=== PATIENT | female | born 1960 | race Two or more races ===

== ENCOUNTER 2017-07-31 13:57 | Emergency (ER) | payer BC | END 2017-07-31 16:29 | disposition home or self-care (01) | LOC: M ED 13:57 | DX: S92.355A Nondisplaced fracture of fifth metatarsal bone, left foot, initial encounter for closed fracture (principal); X50.9XXA Other and unspecified overexertion or strenuous movements or postures, initial encounter; Y92.89 Other specified places as the place of occurrence of the external cause; Y93.89 Activity, other specified; Y99.8 Other external cause status; Z79.899 Other long term (current) drug therapy; Z88.1 Allergy status to other antibiotic agents; Z88.2 Allergy status to sulfonamides; Z98.0 Intestinal bypass and anastomosis status; Z85.038 Personal history of other malignant neoplasm of large intestine | CPT/HCPCS: 73630 ==

== ENCOUNTER → 2017-10-04 | Outpatient (CLI) | payer OTHER ==
[2017-10-04 11:57] LABS: APPEARANCE, URINE CLEAR (CLEAR); BACTERIA, URINE AUTO NEGATIVE (NEGATIVE); BILIRUBIN, URINE AUTO NEGATIVE (NEGATIVE); BLOOD, URINE BLOOD 2+ (NEGATIVE); COLOR, URINE YELLOW (YELLOW); GLUCOSE, URINE (UA) AUTO NEGATIVE (NEGATIVE); KETONE, URINE AUTO NEGATIVE (NEGATIVE); LEUKOCYTE ESTERASE, URINE AUTO NEGATIVE (NEGATIVE); MEAN CORPUSCULAR HEMOGLOBIN 29.3 pg (27.0-33.0); MEAN CORPUSCULAR HGB CONC 33.3 g/dl (32.0-36.5); MEAN CORPUSCULAR VOLUME 87.8 fl (80.0-96.0); MUCUS, URINE SMALL (NEGATIVE); NITRITE, URINE AUTO NEGATIVE (NEGATIVE); PLATELET COUNT, AUTOMATED 330 10^3/uL (150-450); PROTEIN, URINE AUTO NEGATIVE (NEGATIVE); RBC, URINE AUTO 6 /HPF (0-3); RED BLOOD COUNT 4.44 10^6/uL (4.00-5.40); RED CELL DISTRIBUTION WIDTH 13.3 % (11.5-14.5); SPECIFIC GRAVITY URINE AUTO 1.017 (1.002-1.035); SQUAMOUS EPITHELIAL CELL UR AU 2 /HPF (0-6); UROBILINOGEN, URINE AUTO 0.2 mg/dL (0.0-2.0); WBC, URINE AUTO 1 /HPF (0-3); WHITE BLOOD COUNT 8.1 10^3/uL (4.0-10.0)
[2017-10-04 12:13] LABS: ANION GAP 7 MEQ/L (8-16); BLOOD UREA NITROGEN 10 MG/DL (7-18); CARBON DIOXIDE LEVEL 29 MEQ/L (21-32); CHLORIDE LEVEL 106 MEQ/L (98-107); CHOLESTEROL LEVEL 217 MG/DL (<200); CREATININE FOR GFR 0.69 MG/DL (0.55-1.30); GLOMERULAR FILTRATION RATE > 60.0 (>51); GLUCOSE, FASTING 86 MG/DL (70-100); HDL CHOLESTEROL 64 MG/DL (>40); LDL CHOLESTEROL 127.8 MG/DL (<100); NON-HDL-C 153 MG/DL; POTASSIUM SERUM 4.3 MEQ/L (3.5-5.1); SODIUM LEVEL 142 MEQ/L (136-145); TRIGLYCERIDES LEVEL 126 MG/DL (<150)
[2017-10-04 12:36] LABS: ESTIMATED AVERAGE GLUCOSE 111 MG/DL (60-110); HEMOGLOBIN A1c 5.5 %
[2017-10-05 11:19] LABS: CARCINOEMBRYONIC ANTIGEN 76.9 NG/ML (<2.5)
== END ==
LOC: M LAB 10:44
DX: I10 Essential (primary) hypertension (principal)
CPT/HCPCS: 82378

== ENCOUNTER → 2017-10-15 | Outpatient (REF) | payer OTHER | LOC: M LAB REF 12:57 | DX: C18.9 Malignant neoplasm of colon, unspecified (principal) | CPT/HCPCS: 82378 ==

== ENCOUNTER → 2017-10-15 | Outpatient (CLI) | payer OTHER ==
[2017-10-15 09:50] LABS: ANION GAP 7 MEQ/L (8-16); BLOOD UREA NITROGEN 15 MG/DL (7-18); CARBON DIOXIDE LEVEL 27 MEQ/L (21-32); CHLORIDE LEVEL 107 MEQ/L (98-107); CREATININE FOR GFR 0.75 MG/DL (0.55-1.30); GLOMERULAR FILTRATION RATE > 60.0 (>51); GLUCOSE, FASTING 90 MG/DL (70-100); POTASSIUM SERUM 4.3 MEQ/L (3.5-5.1); SODIUM LEVEL 141 MEQ/L (136-145)
== END ==
LOC: M LAB 08:14
DX: I10 Essential (primary) hypertension (principal)
CPT/HCPCS: 80048

== ENCOUNTER → 2017-10-21 | Outpatient (CLI) | payer OTHER ==
[~2017-10-21] MED LIST: GASTROGRAFIN SOLUTION 30ML (Q9963) As Ordered; ISOVUE-370 76% 100ML VIAL (Q9967) As Ordered
== END ==
LOC: M RAD 14:32
DX: C18.9 Malignant neoplasm of colon, unspecified (principal); R10.9 Unspecified abdominal pain; R93.5 Abnormal findings on diagnostic imaging of other abdominal regions, including retroperitoneum
CPT/HCPCS: Q9963

== ENCOUNTER → 2017-10-26 | Outpatient (REF) | payer OTHER ==
[2017-10-26 18:01] LABS: INR 0.99; PROTHROMBIN TIME 13.2 SECONDS (12.4-14.5)
[2017-10-26 18:02] LABS: PARTIAL THROMBOPLASTIN TIME 31.6 SECONDS (26.8-37.9)
== END ==
LOC: M LAB REF 16:59
DX: C18.2 Malignant neoplasm of ascending colon (principal); Z01.818 Encounter for other preprocedural examination

== ENCOUNTER → 2017-11-11 | Outpatient (CLI) | payer OTHER ==
[~2017-11-11] MED LIST changes: -GASTROGRAFIN SOLUTION 30ML (Q9963) As Ordered; -ISOVUE-370 76% 100ML VIAL (Q9967) As Ordered; +LIDOCAINE 1% MDV 20ML VIAL As Ordered
== END ==
LOC: M RADPRO 10:08
DX: C78.6 Secondary malignant neoplasm of retroperitoneum and peritoneum (principal); Z79.84 Long term (current) use of oral hypoglycemic drugs; Z79.899 Other long term (current) drug therapy; Z88.8 Allergy status to other drugs, medicaments and biological substances
CPT/HCPCS: 49180

== ENCOUNTER → 2017-11-24 | Outpatient (CLI) | payer OTHER ==
[~2017-11-24] MED LIST changes: -LIDOCAINE 1% MDV 20ML VIAL As Ordered; +LIDOCAINE 2% MDV 20 ML VIAL As Ordered; +ceFAZolin 1GM INJ (J0690 PER 500MG) As Ordered
== END | disposition home or self-care (01) ==
LOC: M IRPRO 07:50
DX: C18.9 Malignant neoplasm of colon, unspecified (principal)
CPT/HCPCS: 36561

== ENCOUNTER 2017-12-10 18:42 | Emergency (ER) | payer OTHER ==
[2017-12-10 19:56] LABS: BASO % 0.1 % (0.0-1.0); HEMATOCRIT 41.4 % (36.0-47.0); HEMOGLOBIN 13.8 g/dl (12.0-15.5); IMMATURE GRANULOCYTE % 0.1 % (0-3.0); LYMPH # 1.9 10^3/uL (1.5-4.5); LYMPH % 27.4 % (24.0-44.0); MEAN CORPUSCULAR HEMOGLOBIN 29.9 pg (27.0-33.0); MEAN CORPUSCULAR HGB CONC 33.3 g/dl (32.0-36.5); MEAN CORPUSCULAR VOLUME 89.8 fl (80.0-96.0); MONO # 0.4 10^3/uL (0.0-0.8); MONO % 5.7 % (0.0-5.0); NEUTROPHILS # 4.7 10^3/uL (1.8-7.7); NEUTROPHILS % 66.7 % (36.0-66.0); PLATELET COUNT, AUTOMATED 267 10^3/uL (150-450); RED BLOOD COUNT 4.61 10^6/uL (4.00-5.40); RED CELL DISTRIBUTION WIDTH 12.5 % (11.5-14.5)
[2017-12-10 20:02] LABS: APPEARANCE, URINE HAZY (CLEAR); BACTERIA, URINE AUTO NEGATIVE (NEGATIVE); BILIRUBIN, URINE AUTO NEGATIVE (NEGATIVE); BLOOD, URINE BLOOD 2+ (NEGATIVE); COLOR, URINE YELLOW (YELLOW); GLUCOSE, URINE (UA) AUTO NEGATIVE (NEGATIVE); KETONE, URINE AUTO NEGATIVE (NEGATIVE); LEUKOCYTE ESTERASE, URINE AUTO TRACE (NEGATIVE); MUCUS, URINE SMALL (NEGATIVE); NITRITE, URINE AUTO NEGATIVE (NEGATIVE); PROTEIN, URINE AUTO NEGATIVE (NEGATIVE); RBC, URINE AUTO 11 /HPF (0-3); SQUAMOUS EPITHELIAL CELL UR AU 3 /HPF (0-6); UROBILINOGEN, URINE AUTO 0.2 mg/dL (0.0-2.0); WBC, URINE AUTO 8 /HPF (0-3)
[2017-12-10 20:20] LABS: LACTIC ACID SEPSIS PROTOCOL 1.5 MMOL/L (0.4-2.0)
[2017-12-10 20:20] LABS: ALBUMIN 3.8 GM/DL (3.2-5.2); ALKALINE PHOSPHATASE 98 U/L (45-117); ALT/SGPT 26 U/L (12-78); ANION GAP 7 MEQ/L (8-16); AST/SGOT 25 U/L (7-37); BILIRUBIN,DIRECT < 0.1 MG/DL (0.0-0.2); BILIRUBIN,TOTAL 0.2 MG/DL (0.2-1.0); BLOOD UREA NITROGEN 15 MG/DL (7-18); CALCIUM LEVEL 8.8 MG/DL (8.5-10.1); CARBON DIOXIDE LEVEL 26 MEQ/L (21-32); CHLORIDE LEVEL 105 MEQ/L (98-107); GLOMERULAR FILTRATION RATE > 60.0 (>51); GLUCOSE, FASTING 98 MG/DL (70-100); LIPASE 611 U/L (73-393); POTASSIUM SERUM 4.3 MEQ/L (3.5-5.1); SODIUM LEVEL 138 MEQ/L (136-145)
[2017-12-10] MEDS ORDERED: ISOVUE-370 76% 100ML VIAL (Q9967) As Ordered (20:26)
== END 2017-12-10 21:46 | disposition home or self-care (01) ==
LOC: M ED 18:42
DX: R50.9 Fever, unspecified (principal); I10 Essential (primary) hypertension; G43.909 Migraine, unspecified, not intractable, without status migrainosus; E78.5 Hyperlipidemia, unspecified; Z85.038 Personal history of other malignant neoplasm of large intestine; R18.8 Other ascites; Z95.828 Presence of other vascular implants and grafts; Z79.899 Other long term (current) drug therapy; Z88.2 Allergy status to sulfonamides
CPT/HCPCS: Q9967

== ENCOUNTER → 2017-12-13 | Outpatient (REF) | payer OTHER ==
[2017-12-13 19:22] LABS: LIPASE 262 U/L (73-393)
== END ==
LOC: M LAB REF 17:20
DX: C18.2 Malignant neoplasm of ascending colon (principal)
CPT/HCPCS: 83690

== ENCOUNTER → 2017-12-21 | Outpatient (REF) | payer OTHER ==
[2017-12-21 15:16] LABS: CARCINOEMBRYONIC ANTIGEN 165.7 NG/ML (<2.5)
== END ==
LOC: M LAB REF 13:52
DX: C18.2 Malignant neoplasm of ascending colon (principal)

== ENCOUNTER → 2018-01-03 | Outpatient (REF) | payer OTHER ==
[2018-01-05 14:17] LABS: HPV HYBRID CAPTURE II Positive (Negative)
== END ==
LOC: M SFHCWAGY 14:19
DX: Z12.4 Encounter for screening for malignant neoplasm of cervix (principal)
CPT/HCPCS: 88142; G0123

== ENCOUNTER → 2018-01-18 | Outpatient (REF) | payer OTHER ==
[2018-01-18 14:06] LABS: CARCINOEMBRYONIC ANTIGEN 82.2 NG/ML (<2.5)
== END ==
LOC: M LAB REF 13:11
DX: C18.2 Malignant neoplasm of ascending colon (principal)

== ENCOUNTER → 2018-02-08 | Outpatient (REF) | payer OTHER ==
[2018-02-08 14:09] LABS: CARCINOEMBRYONIC ANTIGEN 54.1 NG/ML (<2.5)
== END ==
LOC: M LAB REF 13:38
DX: C18.2 Malignant neoplasm of ascending colon (principal)
CPT/HCPCS: 82378

== ENCOUNTER → 2018-02-21 | Outpatient (REF) | payer OTHER | LOC: M SFHCWAGY 13:50 | DX: R87.610 Atypical squamous cells of undetermined significance on cytologic smear of cervix (ASC-US) (principal); R87.810 Cervical high risk human papillomavirus (HPV) DNA test positive ==

== ENCOUNTER → 2018-02-21 | Outpatient (CLI) | payer OTHER | LOC: M WHC 12:36 | DX: Z12.31 Encounter for screening mammogram for malignant neoplasm of breast (principal) | CPT/HCPCS: 77067 ==

== ENCOUNTER → 2018-03-01 | Outpatient (CLI) | payer OTHER | LOC: M RAD 11:43 | DX: C18.2 Malignant neoplasm of ascending colon (principal) ==

== ENCOUNTER → 2018-03-04 | Outpatient (CLI) | payer OTHER ==
[~2018-03-04] MED LIST changes: +GASTROGRAFIN SOLUTION 30ML (Q9963) As Ordered; +ISOVUE-370 76% 100ML VIAL (Q9967) As Ordered; -LIDOCAINE 2% MDV 20 ML VIAL As Ordered; +READI-CAT 2 As Ordered; -ceFAZolin 1GM INJ (J0690 PER 500MG) As Ordered
== END ==
LOC: M RAD 13:08
DX: C18.9 Malignant neoplasm of colon, unspecified (principal)
CPT/HCPCS: Q9967

== ENCOUNTER → 2018-03-08 | Outpatient (REF) | payer OTHER ==
[2018-03-08 13:57] LABS: CARCINOEMBRYONIC ANTIGEN 18.2 NG/ML (<2.5)
== END ==
LOC: M LAB REF 13:21
DX: C18.2 Malignant neoplasm of ascending colon (principal)

== ENCOUNTER → 2018-03-28 | Outpatient (CLI) | payer OTHER | LOC: M CARPUL 11:13 | DX: C18.2 Malignant neoplasm of ascending colon (principal) | CPT/HCPCS: 93306 ==

== ENCOUNTER → 2018-06-30 | Outpatient (CLI) | payer OTHER ==
[~2018-06-30] MED LIST changes: +E-Z-HD 98% w/w 340GM SUSP BTL As Ordered; +E-Z-PAQUE 96% w/w SUSP 176GM BTL As Ordered; -GASTROGRAFIN SOLUTION 30ML (Q9963) As Ordered
== END ==
LOC: M RAD 16:20
DX: C18.9 Malignant neoplasm of colon, unspecified (principal); Z79.899 Other long term (current) drug therapy
CPT/HCPCS: Q9967

== ENCOUNTER → 2018-08-15 | Outpatient (REF) | payer OTHER ==
[~2018-08-15] MED LIST changes: +ATEN100T PO; +ATEN50TA2 PO; +BIMA01SOL; -E-Z-HD 98% w/w 340GM SUSP BTL As Ordered; -E-Z-PAQUE 96% w/w SUSP 176GM BTL As Ordered; +HYDROCO/APAP PO; -ISOVUE-370 76% 100ML VIAL (Q9967) As Ordered; +LISI-538 PO; +ONDA8TAB7 PO; +PERC5TAB12 PO; +POTA10CA32 PO; +PROC10TA4 PO; -READI-CAT 2 As Ordered; +SENO8.6T5 PO; +SIMB1SUS OP; +SIMB1SUS OS; +SIMV20TA2 PO; +SUMA25TA3 PO; +TOPI25TA10 OR
[2018-08-15 17:46] LABS: HEMATOCRIT 34.1 % (36.0-47.0); HEMOGLOBIN 11.3 g/dl (12.0-15.5); MEAN CORPUSCULAR HGB CONC 33.1 g/dl (32.0-36.5); MEAN CORPUSCULAR VOLUME 99.7 fl (80.0-96.0); PLATELET COUNT, AUTOMATED 131 10^3/uL (150-450); RED BLOOD COUNT 3.42 10^6/uL (4.00-5.40); WHITE BLOOD COUNT 5.8 10^3/uL (4.0-10.0)
[2018-08-15 18:25] LABS: BLOOD UREA NITROGEN 15 MG/DL (7-18); CALCIUM LEVEL 8.7 MG/DL (8.8-10.2); CARBON DIOXIDE LEVEL 26 MEQ/L (21-32); CHLORIDE LEVEL 103 MEQ/L (98-107); CREATININE FOR GFR 0.79 MG/DL (0.55-1.30); GLOMERULAR FILTRATION RATE > 60.0 (>45); GLUCOSE, FASTING 83 MG/DL (70-100); POTASSIUM SERUM 3.8 MEQ/L (3.5-5.1); SODIUM LEVEL 138 MEQ/L (136-145)
== END ==
LOC: M SFHCPLAZ 15:15
PROVIDERS: ATTEND Family Medicine
DX: I95.1 Orthostatic hypotension (principal)

== ENCOUNTER → 2018-09-16 | Outpatient (CLI) | payer BC, OTHER ==
[~2018-09-16] MED LIST changes: +ISOVUE-370 76% 100ML VIAL (Q9967) As Ordered ONE; +READI-CAT 2 As Ordered ONE
--- NOTE | 2018-09-16 19:58 | REP ---
CT CHEST WITH CONTRAST: 09/16/2018. Comparison: 06/30/2018, 03/31/2018 Clinical history: Restaging colon carcinoma. Technique: The patient received bolus 100 ml of Isovue 370 scanning through the chest with coronal and sagittal reconstructions. Findings: The lung jones show some minimal linear fibro atelectatic change medial segment right middle lobe and inferior lingular segment of the left upper lobe at the anterior left lung base. There is no pleural effusion, pleural thickening, calcified pleural plaque, pleural based mass, parenchymal nodule or acute infiltrate. No pneumothorax or pneumomediastinum. Heart is not enlarged. There is no pericardial thickening or effusion. I see no hiatal hernia. The aorta is without aneurysm or dissection. The main, right and left pulmonary arteries and lobar arteries are without filling defects. No pathologic sized mediastinal or hilar adenopathy and supraclavicular regions and axilla show no mass or pathologic sized adenopathy. There is an indwelling port catheter via the right jugular route with its tip terminating in the SVC above the right atrium. Thyroid lobes symmetric and normal bone windows show sternum, manubrium, clavicles, AC joints, glenohumeral joints, humeral heads, scapulae, ribs and the thoracic spine with lower cervical region all to be without acute finding. Impression: 1. Stable CT chest without CT evidence for metastatic disease in the thorax. Electronically Signed by Brady Barrios MD 09/16/2018 08:20 P
--- NOTE | 2018-09-16 20:02 | REP ---
CT ABDOMEN PELVIS WITH IV AND ORAL CONTRAST: 09/16/2018. Clinical history: Restaging metastatic colon carcinoma. Comparison: 06/30/2018, 03/04/2018. Technique: Oral Gastrografin mixture per our protocol. 10 mL 290 ml flavored water for two doses. Bolus of 100 ml Isovue 370 scanning through the abdomen pelvis with delayed scanning through the abdomen. Coronal and sagittal reconstructions provided. Findings: CT abdomen: No hiatal hernia. Stomach well filled with oral contrast and some retained food. Slight thickening of the gastric antral wall and duodenal bulb. This is similar to previous study made of the duodenum, jejunum and ileum all unremarkable. Oral contrast reaches the colon extending to the splenic flexure. Status post colonic resection with an anastomotic sutures about midline just above the umbilicus. This is unchanged. There is no caliber change of the small bowel. The loops to suggest obstruction. The contrast flows freely into the colon at the anastomosis. Moderate stool in the flexure left colon and rectosigmoid without colitis or diverticulitis. Lung window review of all CT slices shows no perforation or free air in the abdomen or pelvis. I see no generalized upper abdominal ascites. The liver, spleen, gallbladder, pancreas and adrenal glands grossly intact. Kidneys show extrarenal pelvis bilaterally. Ureters show normal course to the bladder. They are without stone . The bone windows show lumbar and lower thoracic spine and the posterior elements grossly intact without destructive lesion or compression deformities. Visualized ribs intact. CT pelvis, sacrum, SI joints, pelvis and hips are without fracture or acute bony finding. Bladder only partially filled but without mass, wall thickening or stone. Uterus anteverted, not enlarged. No adnexal mass or pelvic free fluid. No pelvic or inguinal lymphadenopathy nor inguinal/ventral hernia is visible. Small bowel loops deep pelvis normal caliber and contrast throughout without any acute finding. Distal left colon, sigmoid and rectum intact. In the right lower quadrant on image 83 there is a 4.7 mm short axis diameter node previously 5.4 mm marginally smaller and clearly not enlarged. There are other smaller nodes in the same region. Likewise the same or smaller than previous. There is a 4.2 mm node on image 80 and on the previous study it was 5.6 mm in short axis. I do not see other significant findings or new suspicious nodes. Impression: 1. Status post colonic resection with anastomosis patent and with no evidence of a leak, ascites, adenopathy or free air. 2. A few small nodes right lower quadrant as seen on the previous study of these have decreased in size further other small scattered nodes in the mesentery unremarkable. Stable. 3. Liver, spleen, pancreas and adrenal glands are normal without focal lesion. Gallbladder without calcified stone or mass. 4. Stomach well distended with oral contrast. There is slight thickening of the wall of the gastric antrum and first portion of the duodenum as on previous study. This may reflect some peptic disease. Electronically Signed by Brady Barrios MD 09/16/2018 08:20 P
== END ==
LOC: M RAD 16:15
PROVIDERS: ATTEND Internal Medicine Medical Oncology
DX: C18.9 Malignant neoplasm of colon, unspecified (principal); Z98.0 Intestinal bypass and anastomosis status; Z90.49 Acquired absence of other specified parts of digestive tract
CPT/HCPCS: 71260; 74177; Q9967

== ENCOUNTER 2018-11-14 16:02 | Emergency (ER) | payer BC ==
[~2018-11-14] VITALS: Ht 160 cm; Wt 47.7 kg
[~2018-11-14 16:02] MED LIST changes: -ISOVUE-370 76% 100ML VIAL (Q9967) As Ordered ONE; -READI-CAT 2 As Ordered ONE
[2018-11-14] MEDS ORDERED: TRAM50TA2 (16:12)
[2018-11-14] MEDS ORDERED: ENOX40IN3 (16:12)
[2018-11-14] MEDS ORDERED: ONDA4TAB6 (16:12)
[2018-11-14] MEDS ORDERED: NS 1,000 ML IV ONE (17:30)
[2018-11-14] MEDS ORDERED: MORPHINE 4 MG/ML 1ML VIAL/SYRINGE (J2270) IV ONE (17:30)
[2018-11-14 18:19] LABS: HEMATOCRIT 25.6 % (36.0-47.0); HEMOGLOBIN 8.6 g/dl (12.0-15.5); LYMPH # 0.5 10^3/uL (1.5-4.5); LYMPH % 21.4 % (24.0-44.0); MEAN CORPUSCULAR HEMOGLOBIN 32.2 pg (27.0-33.0); MEAN CORPUSCULAR HGB CONC 33.6 g/dl (32.0-36.5); MEAN CORPUSCULAR VOLUME 95.9 fl (80.0-96.0); MONO # 0.5 10^3/uL (0.0-0.8); MONO % 22.2 % (0.0-5.0); NEUTROPHILS # 1.3 10^3/uL (1.8-7.7); NEUTROPHILS % 55.5 % (36.0-66.0); PLATELET COUNT, AUTOMATED 123 10^3/uL (150-450); RED BLOOD COUNT 2.67 10^6/uL (4.00-5.40); WHITE BLOOD COUNT 2.3 10^3/uL (4.0-10.0)
--- NOTE | 2018-11-14 18:29 | REP ---
REASON: Postoperative pyrexia. COMPARISON: 12/10/2017. There is new right costophrenic and cardiophrenic angle blunting. Subtle right lower lobe opacities have developed. The central venous catheter tip is unchanged. Cardiomediastinal silhouette is unchanged. Lung jones are otherwise clear and stable. No change in the osseous structures. IMPRESSION:New right pleural effusion and right lower lobe opacities. Possible right lower lobe pneumonia/atelectasis/combination of both. Electronically Signed by Davy Nam DO 11/14/2018 06:47 P
[2018-11-14 18:43] LABS: ALBUMIN 3.1 GM/DL (3.2-5.2); ALT/SGPT 26 U/L (12-78); BILIRUBIN,DIRECT 0.2 MG/DL (0.0-0.2); BILIRUBIN,TOTAL 0.4 MG/DL (0.2-1.0); BLOOD UREA NITROGEN 7 MG/DL (7-18); CALCIUM LEVEL 8.2 MG/DL (8.8-10.2); CARBON DIOXIDE LEVEL 29 MEQ/L (21-32); CHLORIDE LEVEL 100 MEQ/L (98-107); CREATININE FOR GFR 0.52 MG/DL (0.55-1.30); GLOMERULAR FILTRATION RATE > 60.0 (>45); GLUCOSE, FASTING 101 MG/DL (70-100); LIPASE 540 U/L (73-393); POTASSIUM SERUM 4.1 MEQ/L (3.5-5.1); SODIUM LEVEL 135 MEQ/L (136-145); TOTAL PROTEIN 6.3 GM/DL (6.4-8.2)
[2018-11-14] MEDS ORDERED: ISOVUE-370 76% 100ML VIAL (Q9967) As Ordered ONE (18:49)
[2018-11-14] MEDS ORDERED: SODIUM CHLORIDE 0.9% INJ 10 ML SYR IV PRN (19:00)
--- NOTE | 2018-11-14 20:04 | REPVR ---
EXAM: CT Abdomen and Pelvis With Contrast EXAM DATE/TIME: 11/14/2018 6:55 PM CLINICAL HISTORY: 58 years old, female; Pain; Abdominal pain; Generalized; Prior surgery; Surgery date: <1 month; Surgery type: Resection; Additional info: Post op pain, left abd TECHNIQUE: Imaging protocol: Axial computed tomography images of the abdomen and pelvis with intravenous contrast. Coronal and sagittal reformatted images were created and reviewed. Radiation optimization: All CT scans at this facility use at least one of these dose optimization techniques: automated exposure control; mA and/or kV adjustment per patient size (includes targeted exams where dose is matched to clinical indication); or iterative reconstruction. Contrast material: ISOVUE 370 Contrast volume: 100 ml Contrast route: IV COMPARISON: CT ABD PELVIS WITH CONTRAST 09/16/2018 6:00 PM FINDINGS: Lower thorax: Moderate size right pleural effusion is present with transudate density and adjacent atelectasis. No pulmonary edema. ABDOMEN: Liver: Liver appears normal with no focal abnormality. Gallbladder and bile ducts: Gallbladder is present and shows no evidence of gallstone. Pancreas: Pancreas appears normal. No focal mass or peripancreatic inflammation. Spleen: Spleen appears homogeneous without focal mass. Adrenals: Adrenal glands are normal in appearance. Kidneys and ureters: Kidneys appear normal, with no stone, solid mass or hydronephrosis. Stomach and bowel: No evidence of small bowel obstruction. Cecal tip surgical suture line suggests prior appendectomy. No evidence of acute diverticulitis. Stomach appears somewhat edematous with wall thickening and perigastric stranding. Appendix: Appendix is not seen. No RLQ inflammation to suggest appendicitis. PELVIS: Bladder: Bladder appears normal. Reproductive: Unremarkable as visualized. ABDOMEN and PELVIS: Intraperitoneal space: No pneumoperitoneum. Small volume of dependent pelvic free fluid is present. No pneumoperitoneum. No abnormal pelvic mass. Bones/joints: Bony structures show no acute fracture or destructive process. Soft tissues: Anterior abdominal wall incisional scarring is present. No abnormal fluid collection. Vasculature: Main portal and splenic veins enhance normally. No aortic aneurysm. Lymph nodes: No enlarged lymph nodes. IMPRESSION: 1. Possible inflammatory process involving the stomach such as gastritis. No obstruction. 2. No evidence of bowel obstruction or abscess. 3. Small volume nonspecific abdominal and pelvic free fluid Electronically signed by: Chris Willson On 11/14/2018 20:04:24 PM
[2018-11-14 21:42] VITALS: BP 105/58
--- NOTE | 2018-11-15 05:43 | ED PDOC ---
Post-Departure Follow-Up dr lantigua and dr duarte faxed formal report of ct abd/p and cxr for fu Sam Flores MD Nov 15, 2018 05:43
== END 2018-11-14 22:06 | disposition home or self-care (01) ==
LOC: M ED 16:02
DX: G89.18 Other acute postprocedural pain (principal); J90 Pleural effusion, not elsewhere classified; I10 Essential (primary) hypertension; E78.00 Pure hypercholesterolemia, unspecified; D64.9 Anemia, unspecified; Z85.038 Personal history of other malignant neoplasm of large intestine; Z87.442 Personal history of urinary calculi; Z79.899 Other long term (current) drug therapy; Z88.1 Allergy status to other antibiotic agents; Z88.2 Allergy status to sulfonamides
CPT/HCPCS: 71046; 74177; 80048; 80076; 81001; 83605; 83690; 85025; 87040; 87086; 96361; 96374; 99284; J2270; Q9967

== ENCOUNTER 2018-12-30 07:53 | Day surgery (SDC) | payer BC ==
[2018-12-30] VITALS (8 sets, daily range): BP systolic 129–165; BP diastolic 79–100
[~2018-12-30] VITALS: Ht 160 cm; Wt 42.1 kg
[~2018-12-30 07:53] MED LIST changes: +AMPICILLIN SOD/SULBACTAM SOD 3 GM in D5W MINI-BAG PLUS 100 ML IV ONE; -BIMA01SOL; +BIMA01SOL OS; +DRON2.5C11 PO; +ENOX40IN3; +LR 1,000 ML IV ONE; +MEGE400S10 PO; +MEGE40SU5; +ONDA4TAB6; +ONDA4TAB6 PO; +SENN1TAB38; -SIMB1SUS OP; +TRAM50TA2
[2018-12-30] MEDS ORDERED: LIDOCAINE 2% INJ 100 MG/5 ML SDV (FOR ANES.) As Ordered ONE (08:57)
[2018-12-30] MEDS ORDERED: PROPOFOL 200 MG/20 ML VIAL As Ordered ONE ×3 (08:57→11:01)
[2018-12-30] MEDS ORDERED: dexameTHASONE 4 MG/ML 1ML VIAL (J1100) As Ordered ONE (08:57)
[2018-12-30] MEDS ORDERED: ONDANSETRON 4MG/2ML VIAL (J2405) As Ordered ONE (08:58)
[2018-12-30] MEDS ORDERED: NORCO, ANEXSIA 5/325MG TABLET (HYDROcodone/ACETAMINOPHEN) PO PRN ×2 (12:00)
[2018-12-30] MEDS ORDERED: ONDANSETRON 4MG/2ML VIAL (J2405) IV PRN ×2 (12:00→12:15)
[2018-12-30] MEDS ORDERED: KETOROLAC 30 MG/ML VIAL (J1885) IV PRN (12:00)
[2018-12-30] MEDS ORDERED: fentaNYL 100 MCG/2 ML INJECTION (J3010) As Ordered ONE (12:02)
[2018-12-30] MEDS: fentaNYL 100 MCG/2 ML INJECTION (J3010) IV PRN ×4 (12:05→12:20)
[2018-12-30] MEDS ORDERED: LR 1,000 ML IV SCH (12:15)
[2018-12-30] MEDS ORDERED: METOCLOPRAMIDE INJ 10MG/2ML VIAL (J2765) IV PRN (12:15)
--- NOTE | 2018-12-30 12:16 | REP ---
Chest one-view HISTORY: rule out pneumothorax Comparison: 11/14/2018 Patchy density is present in the left lower lobe consistent with atelectasis or infiltrate. The right lung is clear. The heart is normal in size. The pulmonary vasculature is normal in appearance. A small amount of free air is present under the left hemidiaphragm. An Lstfux-O-Yrsk catheter is present. Impression: 1. Left lower lobe atelectasis or infiltrate. 2. There is a small amount of free air under the left hemidiaphragm. Results were discussed with Dr. Fernandez at 12:30 p.m. 12/30/2018 Electronically Signed by Joshua Giron MD 12/30/2018 12:08 P
--- NOTE | 2018-12-30 13:51 | REP ---
CT CHEST WITHOUT IV CONTRAST: CT chest performed without IV contrast. Sagittal and coronal reconstruction images are performed. Scattered fibroatelectatic changes are seen bilaterally. There is mild air and edema in the right axillary region which is of uncertain significance. There is a right Mediport catheter with the tip in the superior vena cava. There is no gross adenopathy. The heart is normal in size. There is no pleural or pericardial effusion. Gastrostomy tube is seen just to the left of midline in the upper abdomen. It traverses through the left lobe of the liver into the stomach. Small amount of scattered free air is seen in the upper abdomen. A linear metallic structure is seen adjacent to the catheter balloon. That portion appears to be within the stomach lumen and a portion protrudes externally. A few linear metallic structures are also seen on the posterior wall of the stomach. No hematoma is seen along the course of the PEG tube. IMPRESSION: PEG tub traverses through the left lobe of the liver into the stomach, with the balloon located within the anterior aspect of the stomach. A linear metallic structure is seen just lateral to the catheter balloon, of uncertain significance. This measures about 1.5 cm in length. There is a small amount of scattered free air in the upper abdomen. There is no hematoma along the course of the PEG tube. Dr. Fernandez was informed of the these findings at the time of the study. Electronically Signed by Emery Kay MD 12/30/2018 04:18 P
[2018-12-30] MEDS: LR 1,000 ML IV SCH (14:34)
[2018-12-30] MEDS ORDERED: ceFAZolin SOD 1 GM in D5W MINI-BAG PLUS 50 ML IV SCH (16:00)
[2018-12-30] MEDS: AMPICILLIN SOD/SULBACTAM SOD 3 GM in D5W MINI-BAG PLUS 100 ML IV SCH ×2 (16:11→22:52)
[2018-12-31] VITALS (7 sets, daily range): BP systolic 122–134; BP diastolic 65–76
[2018-12-31] MEDS: LR 1,000 ML IV SCH (02:41)
[2018-12-31] MEDS: AMPICILLIN SOD/SULBACTAM SOD 3 GM in D5W MINI-BAG PLUS 100 ML IV SCH ×4 (04:31→21:41)
--- NOTE | 2018-12-31 06:23 | IPNPDOC ---
Subjective General Date/Time Seen The patient was seen on 12/31/18 at 06:21. Subject Chief Complaint/History The patient is a 58-year-old female admitted with a reason for visit of Colon Cancer, Cachexia. no acute overnight events. minimal discomfort from the PEG tube Current Medications Current Medications Current Medications Acetaminophen/ Hydrocodone Bitart ([place], Anexsia 5/325) 1 tab Q4HP PRN PO MODERATE PAIN (PS 5-7); Start 12/30/18 at 12:00 Acetaminophen/ Hydrocodone Bitart ([place], Anexsia 5/325) 2 tab Q6HP PRN PO SEVERE PAIN (PS 8-10); Start 12/30/18 at 12:00 Ampicillin Sodium/ Sulbactam Sodium 3 gm/Dextrose 100 ml @ 200 mls/hr Q6H IV Last administered on 12/31/18at 04:31; Start 12/30/18 at 16:00 Cefazolin Sodium 1 gm/Dextrose 50 ml @ 100 mls/hr Q8H IV ; Start 12/30/18 at 16:00; Stop 12/30/18 at 16:00; Status DC Fentanyl Citrate (Sublimaze) 25 mcg Q5MP PRN IV MODERATE PAIN (PS 4-7) Last administered on 12/30/18at 12:20; Start 12/30/18 at 12:15; Stop 12/30/18 at 12:43; Status DC Ketorolac Tromethamine (ToRADol) 15 mg Q6HP PRN IV MILD/MODERATE PAIN (PS 1-7) Last administered on 12/30/18at 16:11; Start 12/30/18 at 12:00; Stop 01/04/19 at 11:59 Lactated Ringer's 1,000 ml @ 75 mls/hr [id number] IV Last administered on 12/31/18at 02:41; Start 12/30/18 at 12:00 Lactated Ringer's 1,000 ml @ 75 mls/hr [id number] IV ; Start 12/30/18 at 12:15; Stop 12/30/18 at 13:15; Status DC Metoclopramide HCl (REGLAN INJection) 10 mg Q6HP PRN IV NAUSEA OR VOMITING; Start 12/30/18 at 12:15; Stop 12/30/18 at 13:15; Status DC Ondansetron HCl (ZOFRAN INJection) 4 mg Q4HP PRN IV NAUSEA OR VOMITING; Start 12/30/18 at 12:15; Stop 12/30/18 at 13:15; Status DC Ondansetron HCl (ZOFRAN INJection) 4 mg Q6HP PRN IV NAUSEA OR VOMITING; Start 12/30/18 at 12:00 Allergies Coded Allergies: Sulfa (Sulfonamide Antibiotics) (Verified Allergy, Intermediate, ENTIRE BODY RASH, 12/28/18) clarithromycin (Verified Allergy, Intermediate, MOUTH AND TONGUE NUMBNESS, 12/28/18) swelling Objective Physical Examination Examination GENERAL APPEARANCE:comfortable,. SKIN: Warm and moist. HEENT: Normocephalic, atraumatic. [place] palpebral conjunctiva, anicteric sclerae. Lips and mucosa appear moist. NECK: Supple, no thyromegaly. No obvious jugular venous distention. LUNGS: Clear to auscultation bilaterally. No wheezing appreciated. HEART: No chest wall abnormalities. Regular rate and rhythm with no murmurs appreciated. ABDOMEN: Abdomen is flat, soft, nondistended. PEG tube site without bleeding, nontender on palpation EXTREMITIES: Extremities have no deformities. No edema identified. Vital Signs Vital Signs Date Time Temp Pulse Resp B/P (MAP) Pulse Ox O2 Delivery O2 Flow Rate FiO2 12/31/18 02:00 98.5 89 16 130/74 (92) 98 12/30/18 11:31 10 I&Os I&O- Last 24 Hours up to 6 AM 12/31/18 06:00 Intake Total 1625 ml Output Total 1300 ml Balance 325 ml Imaging Studies Chest CT PEG tub traverses through the left lobe of the liver into the stomach, with the balloon located within the anterior aspect of the stomach. A linear metallic structure is seen just lateral to the catheter balloon, of uncertain significance. This measures about 1.5 cm in length. There is a small amount of scattered free air in the upper abdomen. There is no hematoma along the course of the PEG tube. Dr. Fernandez was informed of the these findings at the time of the study. Impression metastatic colon ca cachexia s/p PEG placement - through left lobe of liver check axr to make sure all of the pneumoperitoneum has resolved would hold off on using PEG tube until full tract has form approx 2 weeks addendum: xray shows same amount or even lesser pneumoperitoneum, no increase clinically she looks comfortable Her Hgb Hct are the same compared to the one on 12/06/18 I will advance her diet Potentially home tomorrow if remains stable. Plan / VTE VTE Prophylaxis Ordered?: Yes VTE Exclusion Pharmacological: Bleeding Risk ROBERT FERNANDEZ MD Dec 31, 2018 06:23
[2018-12-31 07:00] LABS: BASO % 0.1 % (0.0-1.0); HEMATOCRIT 32.2 % (36.0-47.0); HEMOGLOBIN 10.9 g/dl (12.0-15.5); LYMPH # 1.2 10^3/uL (1.5-4.5); LYMPH % 12.3 % (24.0-44.0); MEAN CORPUSCULAR HEMOGLOBIN 32.7 pg (27.0-33.0); MEAN CORPUSCULAR HGB CONC 33.9 g/dl (32.0-36.5); MEAN CORPUSCULAR VOLUME 96.7 fl (80.0-96.0); MONO # 0.5 10^3/uL (0.0-0.8); MONO % 5.3 % (0.0-5.0); NEUTROPHILS # 8.3 10^3/uL (1.8-7.7); PLATELET COUNT, AUTOMATED 261 10^3/uL (150-450); RED BLOOD COUNT 3.33 10^6/uL (4.00-5.40); WHITE BLOOD COUNT 10.1 10^3/uL (4.0-10.0)
[2018-12-31 07:18] LABS: BLOOD UREA NITROGEN 18 MG/DL (7-18); CALCIUM LEVEL 9.3 MG/DL (8.8-10.2); CARBON DIOXIDE LEVEL 25 MEQ/L (21-32); CHLORIDE LEVEL 104 MEQ/L (98-107); CREATININE FOR GFR 0.82 MG/DL (0.55-1.30); GLOMERULAR FILTRATION RATE > 60.0 (>45); GLUCOSE, FASTING 90 MG/DL (70-100); SODIUM LEVEL 139 MEQ/L (136-145)
--- NOTE | 2018-12-31 07:32 | REP ---
Clinical: Epigastric and abdominal pain. Technique: Upright view of the chest with supine and upright views of the abdomen and pelvis. Findings: Small amount of free air below left hemidiaphragm again noted and similar to prior examination. Frontal view of the chest is unremarkable. Supine and upright views of the abdomen and pelvis demonstrate relatively nonspecific appearance to the bowel gas pattern. Percutaneous gastrostomy tube noted in stable position. No organomegaly. No abnormal calcifications. Skeletal structures intact. Impression: Stable small amount of pneumoperitoneum again identified. Electronically Signed by Bradley Diaz MD 12/31/2018 07:24 A
--- NOTE | 2018-12-31 15:59 | ROOPDOC ---
[facility] Report Of Operation Report of Operation DATE OF PROCEDURE: 12/30/18 PREPROCEDURE DIAGNOSES: Colon cancer, cachexia POSTPROCEDURE DIAGNOSES: same. PROCEDURE: Upper GI Endoscopy, placement of PEG tube. SURGEON: Brendan Fernandez MD LOCKER ROOM CLERK: Emery Alvarado DO ANESTHESIA: Monitored Anesthesia Care. ESTIMATED BLOOD LOSS: Approximately 10 mL. COMPLICATIONS: PEG tube noted to be through part of left lobe of liver. REMARKS: . PROCEDURE NOTE: . DESCRIPTION OF PROCEDURE: . BRENDAN FERNANDEZ MD Dec 31, 2018 15:59
[2018-12-31] MEDS ORDERED: MAALOX 30 ML SUSP *UDC PO PRN (22:00)
[2018-12-31] MEDS ORDERED: PANTOPRAZOLE 40MG TAB (PROTONIX) PO ONE (22:15)
[2019-01-01 02:00] VITALS: BP 130/75
[2019-01-01] MEDS: AMPICILLIN SOD/SULBACTAM SOD 3 GM in D5W MINI-BAG PLUS 100 ML IV SCH ×2 (03:29→10:13)
[2019-01-01 06:00] VITALS: BP 130/81
[2019-01-01 06:07] LABS: BASO % 0.1 % (0.0-1.0); HEMATOCRIT 31.3 % (36.0-47.0); HEMOGLOBIN 10.5 g/dl (12.0-15.5); LYMPH # 1.7 10^3/uL (1.5-4.5); LYMPH % 21.5 % (24.0-44.0); MEAN CORPUSCULAR HEMOGLOBIN 32.4 pg (27.0-33.0); MEAN CORPUSCULAR HGB CONC 33.5 g/dl (32.0-36.5); MEAN CORPUSCULAR VOLUME 96.6 fl (80.0-96.0); MONO # 0.6 10^3/uL (0.0-0.8); MONO % 7.2 % (0.0-5.0); NEUTROPHILS # 5.6 10^3/uL (1.8-7.7); NEUTROPHILS % 70.9 % (36.0-66.0); PLATELET COUNT, AUTOMATED 255 10^3/uL (150-450); RED BLOOD COUNT 3.24 10^6/uL (4.00-5.40); WHITE BLOOD COUNT 7.9 10^3/uL (4.0-10.0)
--- NOTE | 2019-01-01 08:26 | REP ---
Clinical: Pneumoperitoneum. Technique: Single supine view of the abdomen and pelvis. Comparison: 12/31/2018. Findings: The small amount of pneumoperitoneum identified in the upright view on prior examination is not well delineated on current supine view of the abdomen. No evidence for bowel obstruction. Percutaneous gastrostomy tube is in stable position. No organomegaly. Skeletal structures are intact. The previously identified unspecified metallic foreign body is now noted in the right mid abdomen and a second small 2 mm metallic foreign body is now identified adjacent to it which was previously noted within the pelvis. These metallic foreign bodies are of uncertain etiology or concern and require correlation. Impression: 1. Cannot exclude pneumoperitoneum based on current supine view. 2. Two nonspecified metallic foreign bodies are now identified in the right mid abdomen which have change position from prior examination and are of uncertain clinical significance or etiology. Electronically Signed by Bradley Diaz MD 01/01/2019 08:18 A
[2019-01-01] MEDS ORDERED: PANTOPRAZOLE 40MG TAB (PROTONIX) PO SCH (09:00)
[2019-01-01] MEDS ORDERED: HYDR-4571 PO (12:06)
== END 2019-01-01 14:28 | disposition home or self-care (01) ==
LOC: M SDC 07:53 → UNDOADMIN 11:52 → M MSPAV 11:52 → M SDC 11:52 → M MSPAV 13:03 → M SDC 01-01 14:28 → UNDODISIN 01-01 14:28
PROVIDERS: ATTEND Surgery
DX: C18.9 Malignant neoplasm of colon, unspecified (principal); R64 Cachexia; E78.5 Hyperlipidemia, unspecified; D64.9 Anemia, unspecified; G43.909 Migraine, unspecified, not intractable, without status migrainosus; Z79.899 Other long term (current) drug therapy; Z88.2 Allergy status to sulfonamides; Z92.21 Personal history of antineoplastic chemotherapy
CPT/HCPCS: 36415; 43246; 71045; 71250; 74018; 74021; 80048; 85025; 96361; 96365; 96375; 96376; J1100; J1885; J2405

== ENCOUNTER 2019-01-25 11:28 | Emergency (ER) | payer BC ==
[~2019-01-25] VITALS: Ht 160 cm; Wt 44.6 kg
[~2019-01-25 11:28] MED LIST changes: -AMPICILLIN SOD/SULBACTAM SOD 3 GM in D5W MINI-BAG PLUS 100 ML IV ONE; +HYDR-4571 PO; -LR 1,000 ML IV ONE
[2019-01-25] MEDS ORDERED: BACI500O21 TOP (13:02)
[2019-01-25 13:38] VITALS: BP 144/62
== END 2019-01-25 13:39 | disposition home or self-care (01) ==
LOC: M ED 11:28
DX: L98.9 Disorder of the skin and subcutaneous tissue, unspecified (principal); Z93.1 Gastrostomy status; I95.9 Hypotension, unspecified; Z85.42 Personal history of malignant neoplasm of other parts of uterus; Z85.89 Personal history of malignant neoplasm of other organs and systems; Z79.899 Other long term (current) drug therapy; Z88.2 Allergy status to sulfonamides; Z88.1 Allergy status to other antibiotic agents

== ENCOUNTER 2019-01-30 15:14 | Emergency (ER) | payer BC ==
[~2019-01-30] VITALS: Ht 160 cm; Wt 45.0 kg
[~2019-01-30 15:14] MED LIST changes: +BACI500O21 TOP
[2019-01-30] MEDS ORDERED: PERCOCET 5MG/325MG TAB PO ONE (18:15)
[2019-01-30 18:25] LABS: BASO % 0.4 % (0.0-1.0); EOS # 0.1 10^3/uL (0.0-0.50); HEMATOCRIT 33.9 % (36.0-47.0); HEMOGLOBIN 10.8 g/dl (12.0-15.5); LYMPH # 2.3 10^3/uL (1.5-4.5); MEAN CORPUSCULAR HEMOGLOBIN 30.5 pg (27.0-33.0); MEAN CORPUSCULAR HGB CONC 31.9 g/dl (32.0-36.5); MEAN CORPUSCULAR VOLUME 95.8 fl (80.0-96.0); MONO # 0.8 10^3/uL (0.0-0.8); MONO % 7.6 % (0.0-5.0); NEUTROPHILS # 7.5 10^3/uL (1.8-7.7); NEUTROPHILS % 69.7 % (36.0-66.0); PLATELET COUNT, AUTOMATED 239 10^3/uL (150-450); RED BLOOD COUNT 3.54 10^6/uL (4.00-5.40); WHITE BLOOD COUNT 10.8 10^3/uL (4.0-10.0)
[2019-01-30 18:46] LABS: BLOOD UREA NITROGEN 17 MG/DL (7-18); CALCIUM LEVEL 8.3 MG/DL (8.8-10.2); CARBON DIOXIDE LEVEL 26 MEQ/L (21-32); CHLORIDE LEVEL 106 MEQ/L (98-107); CREATININE FOR GFR 0.82 MG/DL (0.55-1.30); GLOMERULAR FILTRATION RATE > 60.0 (>45); GLUCOSE, FASTING 79 MG/DL (70-100); POTASSIUM SERUM 3.7 MEQ/L (3.5-5.1); SODIUM LEVEL 139 MEQ/L (136-145)
--- NOTE | 2019-01-30 19:18 | REP ---
Clinical: Pain. Status post injection. Technique: Neutral and frog lateral views of the left hip. Findings: Osseous structures, joint spaces, and surrounding soft tissues are normal. No subcutaneous emphysema or radiodense foreign body. Impression: Normal left hip radiographs. Electronically Signed by Bradley Diaz MD 01/30/2019 07:10 P
[2019-01-30] MEDS ORDERED: PERC5TAB12 PO (19:24)
[2019-01-30 19:26] VITALS: BP 113/58
[2019-02-15] MEDS ORDERED: AUGM500T34 PO (10:22)
[2019-02-16] MEDS ORDERED: [UNRECOGNIZED DRUG - CODE] PO (09:33)
== END 2019-01-30 19:38 | disposition home or self-care (01) ==
LOC: M ED 15:14
DX: M54.16 Radiculopathy, lumbar region (principal); E78.5 Hyperlipidemia, unspecified; C79.9 Secondary malignant neoplasm of unspecified site; Z79.891 Long term (current) use of opiate analgesic; Z79.899 Other long term (current) drug therapy; Z88.1 Allergy status to other antibiotic agents; Z88.2 Allergy status to sulfonamides

== ENCOUNTER → 2019-02-17 | Outpatient (CLI) | payer BC ==
[~2019-02-17] MED LIST changes: +AUGM500T34 PO; +[UNRECOGNIZED DRUG - CODE] PO
--- NOTE | 2019-02-17 14:18 | REP ---
MRI lumbar spine without contrast: History: Radiculopathy, left lumbar. History of colon cancer . Comparison is made with CT abdomen and pelvis imaging November 14, 2018. Technique: Sagittal and axial T1 and T2-weighted scans are acquired in the usual fashion with and without fat saturation. Sequences include spin echo, turbo spin-echo, and STIR imaging sequences. MRI findings: Lumbar vertebral body heights are preserved. There is straightening of the normal lumbar lordosis. Alignment is otherwise normal. Cortical and medullary bone signal intensity are normal. There are small cortical cysts in the kidneys parapelvic distribution bilaterally. No other extra vertebral abnormality is observed. The tip of the conus medullaris is normal in position and appearance at L1. There is mild disc space narrowing at the L4-5 disc level. A mild diffuse disc bulge is seen at L4-5. No focal disc protrusion, central canal stenosis, or nerve root compression is appreciated. Other disc spaces are maintained in height. Minimal disc narrowing is seen anteriorly at L2-3. No other lumbar disc protrusion is seen. Impression: Minimal degenerative disc disease changes at L4-5 and L2-3. No disc protrusion, central canal stenosis, or neural foraminal encroachment seen. Electronically Signed by En Maddox MD 02/17/2019 02:31 P
== END ==
LOC: M PLARAD 11:55
PROVIDERS: ATTEND Orthopaedic Surgery Sports Medicine
DX: M51.36 Other intervertebral disc degeneration, lumbar region (principal)

== ENCOUNTER 2019-02-27 21:27 | Emergency (ER) | payer BC ==
[~2019-02-27] VITALS: Ht 160 cm; Wt 45.5 kg
[2019-02-27] MEDS ORDERED: NS 1,000 ML IV SCH (21:59)
[2019-02-27] MEDS ORDERED: ONDANSETRON 4MG/2ML VIAL (J2405) IV ONE (22:00)
[2019-02-27] MEDS ORDERED: PANTOPRAZOLE 40MG INJ (PROTONIX) (C9113) IV ONE (22:00)
[2019-02-27] MEDS ORDERED: MORPHINE 2 MG/ML 1ML SYRINGE (J2270) IV ONE (22:00)
[2019-02-27 23:15] LABS: BASO % 0.4 % (0.0-1.0); EOS # 0.1 10^3/uL (0.0-0.50); EOS % 1.1 % (0.0-3.0); HEMATOCRIT 35.1 % (36.0-47.0); HEMOGLOBIN 11.4 g/dl (12.0-15.5); LYMPH % 24.1 % (24.0-44.0); MEAN CORPUSCULAR HEMOGLOBIN 30.6 pg (27.0-33.0); MEAN CORPUSCULAR HGB CONC 32.5 g/dl (32.0-36.5); MEAN CORPUSCULAR VOLUME 94.1 fl (80.0-96.0); MONO # 0.5 10^3/uL (0.0-0.8); MONO % 6.1 % (0.0-5.0); NEUTROPHILS # 5.7 10^3/uL (1.8-7.7); NEUTROPHILS % 67.9 % (36.0-66.0); PLATELET COUNT, AUTOMATED 247 10^3/uL (150-450); RED BLOOD COUNT 3.73 10^6/uL (4.00-5.40); WHITE BLOOD COUNT 8.4 10^3/uL (4.0-10.0)
--- NOTE | 2019-02-28 00:01 | REPVR ---
EXAM: CT Abdomen and Pelvis Without Contrast EXAM DATE/TIME: 02/27/2019 10:29 PM CLINICAL HISTORY: 58 years old, female; Abdominal pain; Localized; Left lower quadrant (llq); Prior surgery; Additional info: Llq pain HX divertic TECHNIQUE: Imaging protocol: Axial computed tomography images of the abdomen and pelvis without contrast. Coronal and sagittal reformatted images were created and reviewed. Radiation optimization: All CT scans at this facility use at least one of these dose optimization techniques: automated exposure control; mA and/or kV adjustment per patient size (includes targeted exams where dose is matched to clinical indication); or iterative reconstruction. COMPARISON: CT ABD/PEL W/IV CONTRAST ONLY 11/14/2018 6:43 PM FINDINGS: Tubes, catheters and devices: A new percutaneous gastrostomy tube is identified, which traverses the left lobe of the liver. Lungs: Mild atelectatic change/frontal scarring of the lung bases. Liver: No hepatic mass. Gallbladder and bile ducts: The gallbladder is partially contracted. No discrete gallstones visualized. Pancreas: Normal contour. No ductal dilation. Spleen: Normal as visualized on these noncontrast images. No splenomegaly. Adrenals: No mass. Kidneys and ureters: Hypodense bilateral renal probable parapelvic cysts are identified. At the lower pole of the left kidney, this measures 1.4 cm in diameter. No hydronephrosis bilaterally. Stomach and bowel: Surgical clips/suture line identified in the region of the cecum. There is mild fecal distention of the sigmoid colon. No evidence of bowel obstruction. Stable postoperative changes are visualized involving the cecum. Evaluation of bowel is limited by the absence of oral contrast. Appendix: The appendix is not visualized/absent. Intraperitoneal space: There is interval resolution of intrapelvic free fluid. No free intraperitoneal air. Vasculature: No abdominal aortic aneurysm. Lymph nodes: No enlarged lymph nodes. Bladder: Unremarkable as visualized. Reproductive: Gas is identified within the vagina, which has increased. Fistula formation cannot be excluded. Bones/joints: No acute fracture. Soft tissues: Postoperative changes are identified involving the anterior abdominal wall. IMPRESSION: 1. A new percutaneous gastrostomy tube is identified, which traverses the left lobe of the liver. 2. Bilateral renal probable parapelvic cysts are identified. At the lower pole of the left kidney, this measures 1.4 cm in diameter. 3. There is mild fecal distention of the sigmoid colon. No evidence of bowel obstruction. 4. Stable postoperative changes. 5. Gas is identified within the vagina, which has increased. Fistula formation cannot be excluded. 6. Additional findings described above. COMMENT: Consistent with the [employer]'s Incidental Findings Committee Report (J Am Umesh Radiol 2010): Unless the patient's specific circumstances suggest otherwise, any liver lesion 0.5 cm or less, any cystic kidney lesion less than 1.0 cm, and/or any adrenal lesion 1.0 cm or less not otherwise characterized in this report as possessing suspicious or indeterminate imaging features is/are highly likely to be benign and do not require follow-up imaging or biopsy. Electronically signed by: Trey Villa On 02/28/2019 00:00:44 AM
[2019-02-28] MEDS ORDERED: BISACODYL 10 MG SUPP PR ONE (00:15)
[2019-02-28 00:17] VITALS: BP 142/70
[2019-02-28 00:45] LABS: ALBUMIN 2.9 GM/DL (3.2-5.2); ALT/SGPT 26 U/L (12-78); BILIRUBIN,DIRECT < 0.1 MG/DL (0.0-0.2); BILIRUBIN,TOTAL 0.1 MG/DL (0.2-1.0); BLOOD UREA NITROGEN 19 MG/DL (7-18); CALCIUM LEVEL 7.9 MG/DL (8.8-10.2); CARBON DIOXIDE LEVEL 26 MEQ/L (21-32); CHLORIDE LEVEL 113 MEQ/L (98-107); CREATININE FOR GFR 0.82 MG/DL (0.55-1.30); GLOMERULAR FILTRATION RATE > 60.0 (>45); GLUCOSE, FASTING 90 MG/DL (70-100); LIPASE 307 U/L (73-393); POTASSIUM SERUM 3.9 MEQ/L (3.5-5.1); SODIUM LEVEL 142 MEQ/L (136-145); TOTAL PROTEIN 6.8 GM/DL (6.4-8.2)
--- NOTE | 2019-03-06 19:35 | ED PDOC ---
Post-Departure Follow-Up e clinic - dr ravi broussard faxed formal report of ct abd/p for fu fortunato Parish-Sam Kay MD Mar 06, 2019 19:35
== END 2019-02-28 00:26 | disposition home or self-care (01) ==
LOC: M ED 21:27
DX: K59.00 Constipation, unspecified (principal); E11.9 Type 2 diabetes mellitus without complications; I10 Essential (primary) hypertension; Z79.899 Other long term (current) drug therapy; Z88.1 Allergy status to other antibiotic agents; Z88.2 Allergy status to sulfonamides
CPT/HCPCS: 74176; 80048; 80076; 81001; 83690; 85025; 87086; 96361; 96374; 96375; 99284; C9113; J2270; J2405

== ENCOUNTER → 2019-02-28 | Outpatient (CLI) | payer BC ==
--- NOTE | 2019-02-28 13:44 | REP ---
WHOLE BODY RADIONUCLIDE BONE SCAN: HISTORY: Colon cancer. Question metastasis. Left leg pain. TECHNIQUE: 22.0 mCi of technetium 99m MDP is injected and standard whole body bone scan imaging was acquired. SCINTIGRAPHIC FINDINGS: There is a normal distribution of skeletal tracer with uptake in bilateral kidneys and the urinary bladder. There is no evidence to suggest skeletal metastatic disease. There is slightly asymmetric increased uptake in and about the left knee which may reflect arthropathy. No focal lesion is seen. IMPRESSION: No evidence to suggest skeletal metastatic disease. Electronically Signed by En Maddox MD 02/28/2019 02:21 P
== END ==
LOC: M RAD 10:07
PROVIDERS: ATTEND Internal Medicine Hematology & Oncology
DX: C18.9 Malignant neoplasm of colon, unspecified (principal)
CPT/HCPCS: 78306; A9503

== ENCOUNTER → 2019-03-10 | Outpatient (CLI) | payer BC ==
[~2019-03-10] MED LIST changes: +E-Z-GAS II EFFERVESCENT PACKET (SODIUM BICARB./CITRIC ACID/SIMETHICONE) As Ordered ONE; +E-Z-HD 98% w/w 340GM SUSP BTL As Ordered ONE; +E-Z-PAQUE 96% w/w SUSP 176GM BTL As Ordered ONE; +GASTROGRAFIN SOLUTION 30ML (Q9963) As Ordered ONE; +ONDA8TAB10 PO; -ONDA8TAB7 PO; -SIMV20TA2 PO; +SIMV20TA22 PO
--- NOTE | 2019-03-10 11:53 | REP ---
Upper GI with SBFT The procedure was performed by ABELARDO Rodriguez, under the the direct supervision of Dr. Barrios. The images were reviewed with Dr. Barrios. The lithograph printer film shows no organomegaly or pathological masses. The intestinal gas pattern appears normal. The patient has a gastric feeding tube. 500 ml of a 50/50 solution containing gastrographin and water was injected into the patient's gastric feeding tube in order to perform the examination. The stomach zhou and duodenum visible are normally outlined. The gastrographin column was followed through the small bowel to the level of the terminal ileum. Small bowel transit time was approximately 60 minutes. During fluoroscopy gentle palpation shows all loops are freely mobile and pliable. There are no fixed or angulated loops. The small bowel mucosal pattern is normal in course and caliber. There is no transition to suggest a partial small-bowel obstruction. Spot filming of the terminal ileum is limited but this does not demonstrate any abnormalities. The barium column was then followed through to the rectum. There is no evidence of a vaginal or vesical fistula, nor obstruction. Impression: 1. Unremarkable of gastrographin small-bowel follow-through. 0.5 minutes of fluoroscopy time was utilized for this procedure. Some fluoroscopic images are performed with last image hold technology. These images require no additional radiation. Reviewed by ABELARDO Olvera 03/10/2019 10:40 A Electronically Signed by Brady Barrios MD 03/10/2019 11:45 A
== END ==
LOC: M RAD 07:22
PROVIDERS: ATTEND Internal Medicine Hematology & Oncology
DX: C18.9 Malignant neoplasm of colon, unspecified (principal)
CPT/HCPCS: 74245; Q9963